=== PATIENT | female | born 1980 | race African-American/Black ===

== ENCOUNTER 2023-06-02 18:35 | Emergency (ER) | payer MEDICAID ==
[~2023-06-02] VITALS: Ht 172.7 cm; Wt 100.0 kg
[2023-06-02 18:51] VITALS: BP 135/100; PULSE 110; RESP 16; TEMP 98.4; O2SAT 97
== END 2023-06-02 20:52 | disposition home or self-care (01) ==
LOC: ER 18:35
DX: F12.129 Cannabis abuse with intoxication, unspecified (principal)
CPT/HCPCS: 99283

== ENCOUNTER 2024-03-20 10:43 | Emergency (ER) | payer MEDICAID ==
[~2024-03-20] VITALS: Ht 175.3 cm; Wt 102.0 kg
[~2024-03-20 10:43] MED LIST: LEVO-65 MT; METR-167 MT
[2024-03-20 10:56] VITALS: BP 150/93; PULSE 99; RESP 18; TEMP 98.1; O2SAT 98
== END 2024-03-20 13:04 | disposition home or self-care (01) ==
LOC: ER 10:43
DX: B34.9 Viral infection, unspecified (principal); Z20.822 Contact with and (suspected) exposure to COVID-19; Z86.59 Personal history of other mental and behavioral disorders
CPT/HCPCS: 71045; 87426; 87804; 99284

== ENCOUNTER 2024-10-05 20:39 | Emergency (ER) | payer MEDICAID ==
[~2024-10-05] VITALS: Ht 172.7 cm; Wt 82.0 kg
[~2024-10-05 20:39] MED LIST changes: +LEVE1000 MT; -LEVO-65 MT; -METR-167 MT; +PHEN100C4 PO
[2024-10-05 20:55] VITALS: BP 147/73; PULSE 112; RESP 18; O2SAT 97
[2024-10-05 23:04] VITALS: TEMP 99.2
[2024-10-05] MEDS: ACETAMINOPHEN 325MG TABLET PO ONE (23:04)
[2024-10-05 23:35] LABS: BASOPHILS % 0.1 % (0.0-2.0); HEMATOCRIT. 35.9 % (36.0-48.0); HEMOGLOBIN. 12.5 g/dL (12.0-16.0); LYMPHOCYTES % 24.1 % (20.0-50.0); MEAN CORPUSCULAR HEMOGLOBIN 28.7 pg (28.0-32.0); MEAN CORPUSCULAR HGB CONC 34.7 g/dL (31.0-37.0); MEAN CORPUSCULAR VOLUME 82.5 fL (81.0-99.0); MEAN PLATELET VOLUME 7.6 fl (7.4-10.4); NEUTROPHILS % 70.8 % (40.0-76.0); PLATELET 211 x1000/uL (130-400); RED BLOOD CELL COUNT 4.35 mill/uL (4.2-5.4); RED CELL DISTRIBUTION WIDTH 14.3 % (11.6-14.6); WHITE BLOOD COUNT 9.3 x1000/uL (4.5-11.0)
[2024-10-05 23:37] LABS: CHLORIDE 111 mEq/L (98-107); POTASSIUM 3.1 mEq/L (3.5-5.1); SODIUM 143 mEq/L (136-145)
[2024-10-05 23:38] LABS: CALCIUM 9.4 mg/dL (8.7-10.4); CARBON DIOXIDE 20 mEq/L (21-32)
[2024-10-05 23:43] LABS: CREATININE 0.8 mg/dL (0.6-1.0); GLUCOSE 106 mg/dL (70-105); UREA NITROGEN BLOOD 5 mg/dL (9-23)
[2024-10-05 23:44] LABS: ETHANOL BLOOD < 10 mg/dL (<10); PHENYTOIN 14.5 ug/mL (10-20)
[2024-10-05 23:46] LABS: HCG SCREEN NEGATIVE
[2024-10-06] MEDS ORDERED: POTA-204 MT (00:09)
[2024-10-06] MEDS ORDERED: ACET-2708 MT (00:09)
[2024-10-06] MEDS: POTASSIUM CHLORIDE 20MEQ/PACKET PO NR (00:15)
== END 2024-10-06 00:24 | disposition home or self-care (01) ==
LOC: ER 20:39
DX: H93.19 Tinnitus, unspecified ear (principal); R03.0 Elevated blood-pressure reading, without diagnosis of hypertension; G40.909 Epilepsy, unspecified, not intractable, without status epilepticus; E87.6 Hypokalemia; Z79.899 Other long term (current) drug therapy; Z20.822 Contact with and (suspected) exposure to COVID-19
CPT/HCPCS: 36415; 80048; 80185; 80320; 84703; 85025; 87426; 87804; 99284; G0480

== ENCOUNTER 2025-01-19 12:31 | Emergency (ER) | payer MEDICAID ==
[~2025-01-19] VITALS: Ht 170.2 cm; Wt 91.0 kg
[~2025-01-19 12:31] MED LIST changes: +ACET-2708 MT; +POTA-204 MT
[2025-01-19 12:33] VITALS: O2SAT 100
[2025-01-19 12:41] VITALS: TEMP 36.8; O2SAT 98
[2025-01-19] MEDS: DEXAMETHASONE 4MG TABLET PO ONE (15:11)
[2025-01-19 15:12] VITALS: BP 142/94; PULSE 118; RESP 16
[2025-01-19] MEDS: KETOROLAC 30MG/ML VIAL IM ONE (15:12)
== END 2025-01-19 16:57 | disposition home or self-care (01) ==
LOC: ER 12:31
DX: G43.909 Migraine, unspecified, not intractable, without status migrainosus (principal); G89.29 Other chronic pain; M54.9 Dorsalgia, unspecified; M51.372 Other intervertebral disc degeneration, lumbosacral region with discogenic back pain and lower extremity pain; K80.20 Calculus of gallbladder without cholecystitis without obstruction; R56.9 Unspecified convulsions; Z79.899 Other long term (current) drug therapy
CPT/HCPCS: 81025; 72100; 96372; 99283; J8540; J1885; Z7610

== ENCOUNTER 2025-02-13 10:38 | Emergency (ER) | payer MEDICAID ==
[~2025-02-13] VITALS: Ht 177.8 cm; Wt 104.3 kg
[2025-02-13 10:41] VITALS: O2SAT 98
[2025-02-13] MEDS: SODIUM CHLORIDE 0.9% 1,000 ML IV ONE (11:19)
[2025-02-13 11:20] LABS: BASOPHILS % 0.9 % (0.0-2.0); HEMATOCRIT. 36.9 % (36.0-48.0); HEMOGLOBIN. 12.5 g/dL (12.0-16.0); LYMPHOCYTES % 27.5 % (20.0-50.0); MEAN CORPUSCULAR HEMOGLOBIN 27.7 pg (28.0-32.0); MEAN CORPUSCULAR HGB CONC 33.7 g/dL (31.0-37.0); MEAN CORPUSCULAR VOLUME 82.1 fL (81.0-99.0); MEAN PLATELET VOLUME 7.2 fl (7.4-10.4); NEUTROPHILS % 65.6 % (40.0-76.0); PLATELET 234 x1000/uL (130-400); RED CELL DISTRIBUTION WIDTH 15.4 % (11.6-14.6); WHITE BLOOD COUNT 6.4 x1000/uL (4.5-11.0)
[2025-02-13 11:27] LABS: CHLORIDE 109 mEq/L (98-107); POTASSIUM 4.2 mEq/L (3.5-5.1); SODIUM 141 mEq/L (136-145)
[2025-02-13 11:31] LABS: CALCIUM 9.1 mg/dL (8.7-10.4); CARBON DIOXIDE 28 mEq/L (21-32)
[2025-02-13 11:36] LABS: CREATININE 0.9 mg/dL (0.6-1.0); GLUCOSE 92 mg/dL (70-105); PHENYTOIN 12.2 ug/mL (10-20); UREA NITROGEN BLOOD 6 mg/dL (9-23)
[2025-02-13 11:40] LABS: HCG SCREEN NEGATIVE
[2025-02-13 11:44] LABS: CLARITY URINE CLEAR (CLEAR); COLOR URINE YELLOW (YELLOW); GLUCOSE URINE NEGATIVE (NEGATIVE); KETONES URINE NEGATIVE (NEGATIVE); LEUKOCYTE ESTERASE URINE NEGATIVE (NEGATIVE); NITRITE URINE NEGATIVE (NEGATIVE); OCCULT BLOOD URINE NEGATIVE (NEGATIVE); PH URINE 5.5 (4.5-8.0); PROTEIN URINE NEGATIVE (NEGATIVE); SPECIFIC GRAVITY URINE 1.009 (1.005-1.030); UROBILINOGEN URINE 0.2 E.U./dL (0.2-1.0)
[2025-02-13 12:09] LABS: *AMPHETAMINES SCREEN URINE NEGATIVE (NEGATIVE); *BARBITURATES SCREEN URINE NEGATIVE (NEGATIVE)
[2025-02-13 12:10] LABS: *BENZODIAZEPINES SCREEN URINE NEGATIVE (NEGATIVE); *COCAINE SCREEN URINE NEGATIVE (NEGATIVE); CANNABINOID URINE SCREEN NEGATIVE (NEGATIVE); ECSTASY MDMA SCREEN URINE NEGATIVE (NEGATIVE); METHADONE URINE SCREEN NEGATIVE (NEGATIVE); OPIATES URINE SCREEN NEGATIVE (NEGATIVE); PHENCYCLIDINE URINE SCREEN NEGATIVE (NEGATIVE)
[2025-02-13] MEDS ORDERED: IBUP-2029 MT (13:13)
[2025-02-13 13:19] VITALS: BP 122/78; PULSE 94; RESP 18; TEMP 36.9; O2SAT 100
== END 2025-02-13 13:37 | disposition home or self-care (01) ==
LOC: ER 10:38
DX: S62.610A Displaced fracture of proximal phalanx of right index finger, initial encounter for closed fracture (principal); R55 Syncope and collapse; Z79.899 Other long term (current) drug therapy; X58.XXXA Exposure to other specified factors, initial encounter; Y93.89 Activity, other specified; Y92.89 Other specified places as the place of occurrence of the external cause; Y99.8 Other external cause status
CPT/HCPCS: 99285; 96360; 70450; 71045; 80305; 80048; 81003; 80185; 84703; 85025; 36415; 73130; 93005; 29130; J7030

== ENCOUNTER 2025-03-11 09:45 | Emergency (ER) | payer MEDICAID ==
[~2025-03-11] VITALS: Ht 170.2 cm; Wt 100.0 kg
[~2025-03-11 09:45] MED LIST changes: +IBUP-2029 MT
[2025-03-11 09:56] VITALS: O2SAT 98
[2025-03-11 10:48] LABS: BASOPHILS % 0.2 % (0.0-2.0); HEMATOCRIT. 37.3 % (36.0-48.0); HEMOGLOBIN. 12.6 g/dL (12.0-16.0); LYMPHOCYTES % 24.6 % (20.0-50.0); MEAN CORPUSCULAR HGB CONC 33.9 g/dL (31.0-37.0); MEAN CORPUSCULAR VOLUME 82.8 fL (81.0-99.0); MEAN PLATELET VOLUME 7.2 fl (7.4-10.4); MONOCYTES % 3.7 % (2.0-8.0); NEUTROPHILS % 71.5 % (40.0-76.0); PLATELET 210 x1000/uL (130-400); RED CELL DISTRIBUTION WIDTH 15.2 % (11.6-14.6); WHITE BLOOD COUNT 6.9 x1000/uL (4.5-11.0)
[2025-03-11 11:03] LABS: CHLORIDE 107 mEq/L (98-107); POTASSIUM 3.7 mEq/L (3.5-5.1); SODIUM 146 mEq/L (136-145)
[2025-03-11 11:04] LABS: CALCIUM 9.1 mg/dL (8.7-10.4); CARBON DIOXIDE 28 mEq/L (21-32)
[2025-03-11 11:09] LABS: CREATININE 0.8 mg/dL (0.6-1.0); GLUCOSE 107 mg/dL (70-105); UREA NITROGEN BLOOD 8 mg/dL (9-23)
[2025-03-11 11:10] LABS: TROPONIN I HIGH SENSITIVITY 4 ng/L (3.0-34)
[2025-03-11 11:11] LABS: HCG SCREEN NEGATIVE
[2025-03-11 11:31] LABS: CLARITY URINE CLEAR (CLEAR); COLOR URINE YELLOW (YELLOW); GLUCOSE URINE NEGATIVE (NEGATIVE); KETONES URINE NEGATIVE (NEGATIVE); LEUKOCYTE ESTERASE URINE NEGATIVE (NEGATIVE); NITRITE URINE NEGATIVE (NEGATIVE); OCCULT BLOOD URINE NEGATIVE (NEGATIVE); PH URINE 5.5 (4.5-8.0); PROTEIN URINE NEGATIVE (NEGATIVE); SPECIFIC GRAVITY URINE 1.014 (1.005-1.030); UROBILINOGEN URINE 0.2 E.U./dL (0.2-1.0)
[2025-03-11 12:21] VITALS: BP 141/82; PULSE 86; RESP 18; TEMP 36.9; O2SAT 98
== END 2025-03-11 12:23 | disposition home or self-care (01) ==
LOC: ER 09:45
DX: R42 Dizziness and giddiness (principal); Z79.899 Other long term (current) drug therapy; Z98.890 Other specified postprocedural states; Z86.59 Personal history of other mental and behavioral disorders
CPT/HCPCS: 36415; 71045; 80048; 81003; 81025; 84484; 84703; 85025; 93005; 93970; 99285

== ENCOUNTER 2025-04-20 12:00 | Emergency (ER) | payer MEDICAID ==
[~2025-04-20] VITALS: Ht 177.8 cm; Wt 95.0 kg
[~2025-04-20 12:00] MED LIST changes: +IBUP-1455 MT; -IBUP-2029 MT
[2025-04-20 12:08] VITALS: O2SAT 99
[2025-04-20 12:09] VITALS: BP 153/98; PULSE 100; RESP 18; TEMP 36.6; O2SAT 99
[2025-04-20 12:54] LABS: BASOPHILS % 0.4 % (0.0-2.0); EOSINOPHILS % 0.0 % (0.0-5.0); HEMATOCRIT. 36.6 % (36.0-48.0); HEMOGLOBIN. 12.5 g/dL (12.0-16.0); LYMPHOCYTES % 28.6 % (20.0-50.0); MEAN PLATELET VOLUME 7.3 fl (7.4-10.4); MONOCYTES % 7.4 % (2.0-8.0); NEUTROPHILS % 63.6 % (40.0-76.0); PLATELET 196 x1000/uL (130-400); RED BLOOD CELL COUNT 4.50 mill/uL (4.2-5.4); RED CELL DISTRIBUTION WIDTH 13.5 % (11.6-14.6)
[2025-04-20 13:06] LABS: CREATININE 0.8 mg/dL (0.6-1.0); UREA NITROGEN BLOOD 9 mg/dL (9-23)
[2025-04-20 13:08] LABS: ASPARTATE AMINOTRANSFERASE 13 IU/L (<34); BILIRUBIN DIRECT < 0.1 mg/dL (<=3.0); BILIRUBIN TOTAL 0.3 mg/dL (0.1-1.0); PROTEIN TOTAL 7.4 g/dL (6.0-8.3)
[2025-04-20 13:21] LABS: CLARITY URINE CLEAR (CLEAR); COLOR URINE YELLOW (YELLOW); GLUCOSE URINE NEGATIVE (NEGATIVE); KETONES URINE NEGATIVE (NEGATIVE); LEUKOCYTE ESTERASE URINE NEGATIVE (NEGATIVE); NITRITE URINE NEGATIVE (NEGATIVE); OCCULT BLOOD URINE NEGATIVE (NEGATIVE); PH URINE 5.5 (4.5-8.0); PROTEIN URINE NEGATIVE (NEGATIVE); SPECIFIC GRAVITY URINE 1.017 (1.005-1.030); UROBILINOGEN URINE 0.2 E.U./dL (0.2-1.0)
[2025-04-20 13:35] LABS: HCG SCREEN NEGATIVE
[2025-04-20] MEDS ORDERED: PHEN100C4 PO (18:34)
[2025-04-20] MEDS ORDERED: LEVE1000 MT (18:34)
== END 2025-04-20 18:44 | disposition home or self-care (01) ==
LOC: ER 12:00 → CMPBEDREQ 18:45
DX: K80.20 Calculus of gallbladder without cholecystitis without obstruction (principal); R10.32 Left lower quadrant pain; R60.0 Localized edema; D25.9 Leiomyoma of uterus, unspecified; Z79.899 Other long term (current) drug therapy; Z98.890 Other specified postprocedural states
CPT/HCPCS: 36415; 74176; 76830; 76856; 80048; 80076; 81003; 84703; 85025; 99284

== ENCOUNTER 2025-07-17 07:03 | Emergency (ER) | payer MEDICAID ==
[~2025-07-17] VITALS: Ht 177.8 cm; Wt 102.0 kg
[2025-07-17 07:17] VITALS: O2SAT 100
[2025-07-17] MEDS: ACETAMINOPHEN 500MG TABLET PO ONE (08:03)
[2025-07-17 08:17] LABS: BASOPHILS % 0.4 % (0.0-2.0); EOSINOPHILS % 0.0 % (0.0-5.0); HEMATOCRIT. 38.2 % (36.0-48.0); HEMOGLOBIN. 12.7 g/dL (12.0-16.0); LYMPHOCYTES % 24.8 % (20.0-50.0); MEAN PLATELET VOLUME 7.2 fl (7.4-10.4); MONOCYTES % 8.6 % (2.0-8.0); NEUTROPHILS % 66.2 % (40.0-76.0); PLATELET 240 x1000/uL (130-400); RED BLOOD CELL COUNT 4.69 mill/uL (4.2-5.4); RED CELL DISTRIBUTION WIDTH 14.6 % (11.6-14.6)
[2025-07-17 08:34] LABS: CREATININE 0.8 mg/dL (0.6-1.0); UREA NITROGEN BLOOD 8 mg/dL (9-23)
[2025-07-17 08:36] LABS: TROPONIN I HIGH SENSITIVITY 4 ng/L (3.0-34)
[2025-07-17 09:00] LABS: CLARITY URINE CLEAR (CLEAR); COLOR URINE DARK YELLOW (YELLOW); GLUCOSE URINE NEGATIVE (NEGATIVE); KETONES URINE NEGATIVE (NEGATIVE); LEUKOCYTE ESTERASE URINE NEGATIVE (NEGATIVE); NITRITE URINE NEGATIVE (NEGATIVE); OCCULT BLOOD URINE NEGATIVE (NEGATIVE); PH URINE 5.5 (4.5-8.0); PROTEIN URINE 1+ (NEGATIVE); SPECIFIC GRAVITY URINE 1.028 (1.005-1.030); UROBILINOGEN URINE 1.0 E.U./dL (0.2-1.0)
[2025-07-17 09:41] LABS: BACTERIA URINE 1+; RBC URINE 0-2 /hpf (0-2); SQUAMOUS EPITHELIAL CELL URINE 1+ /lpf (RARE/1+); WBC URINE 0-2 /hpf (0-2); YEAST URINE NONE SEEN
[2025-07-17 10:31] LABS: INFLUENZA TYPE A Presumptive Negative (Pres. Neg.)
[2025-07-17 10:32] LABS: INFLUENZA TYPE B Presumptive Negative (Pres. Neg.); RESPIRATORY SYNCYTIAL VIRUS Not Detected (Not Detectd)
[2025-07-17 11:09] LABS: ASPARTATE AMINOTRANSFERASE 30 IU/L (<34); BILIRUBIN DIRECT < 0.1 mg/dL (<=3.0); BILIRUBIN TOTAL 0.3 mg/dL (0.1-1.0); PROTEIN TOTAL 7.7 g/dL (6.0-8.3)
[2025-07-17 12:10] VITALS: BP 126/85; PULSE 105; RESP 13; TEMP 36.8; O2SAT 97
== END 2025-07-17 12:13 | disposition home or self-care (01) ==
LOC: ER 07:03 → CMPBEDREQ 13:38
DX: K80.20 Calculus of gallbladder without cholecystitis without obstruction (principal); B34.9 Viral infection, unspecified; M79.604 Pain in right leg; M79.605 Pain in left leg; Z79.899 Other long term (current) drug therapy; Z20.822 Contact with and (suspected) exposure to COVID-19
CPT/HCPCS: 36415; 76705; 80048; 80076; 81003; 81025; 82550; 84484; 85025; 87420; 87426; 87804; 93005; 93970; 99284